=== PATIENT | female | born 1935 | race Caucasian/White ===

== ENCOUNTER 2016-11-10 02:59 | Inpatient (IN) | payer OTHER ==
[2016-11-10] MEDS ORDERED: ATIVAN IV PRN (09:08)
[2016-11-10] MEDS ORDERED: MISC. PHARMACY COMMUNICATION SCH (09:15)
[2016-11-10] MEDS ORDERED: ROXANOL CONC. LIQUID SL PRN (12:42)
[2016-11-10] MEDS ORDERED: ZOFRAN IV PRN (12:42)
[2016-11-10] MEDS ORDERED: TYLENOL GT PRN (12:42)
[2016-11-10] MEDS ORDERED: DUONEB (A & A) INH SCH (12:42)
[2016-11-10] MEDS ORDERED: VIMPAT GT SCH (12:42)
--- NOTE | 2016-11-10 13:55 | HISTORY AND PHYSICAL ---
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 Ms. Riggs has been fairly stable and is going to be admitted to the [facility] for inpatient respite care with [facility] and the [facility]. PAST MEDICAL HISTORY: I reviewed past medical history. Chronic respiratory failure, hypertension, history of brainstem stroke, recurrent hospitalizations for gram-negative pneumonia, seizure disorder. PAST SURGICAL HISTORY: Cataract surgery, hemorrhoidectomy, tonsillectomy, placement of a tracheostomy. ALLERGIES: Quinolones, statins, amoxicillin. FAMILY HISTORY: Noncontributory. SOCIAL HISTORY: The patient is a . She does not smoke or consume alcoholic beverages. REVIEW OF SYSTEMS: A 12 point review of systems was performed and pertinent positives and negatives were listed. PHYSICAL EXAM: GENERAL: This is a chronically ill-appearing 80-year-old lady in no apparent distress. VITAL SIGNS: She is afebrile. Vital signs are stable. HEENT: Fundi with arteriolar wall thickening. Pupils equal, round, reactive to light. Extraocular eye movements intact. NECK: Supple. No masses, JVD or bruits. CV: Regular rate and rhythm. LUNGS: Distant breath sounds with increased period of expiration. ABDOMEN: Soft, nontender, with active bowel sounds. A PEG tube is in place. EXTREMITIES: Trace edema. ASSESSMENT: 1. Chronic respiratory failure status post tracheostomy placement on a home ventilator secondary to brainstem cerebrovascular accident. 2. Seizure disorder. 3. Severe protein calorie malnutrition. 4. Ischemic heart disease status post [id number] elevation myocardial infarction. PLAN: 1. Chronic respiratory failure secondary to brainstem infarction. The patient will use their own Trilogy ventilator with the following ventilator settings. AC tidal volume 450, respiratory rate 14, PEEP 5. We will continue DuoNeb nebulizer treatments q.4 hours. 2. Seizure disorder. She remains seizure free. We will continue Vimpat 10 mg per mL 5 mL per tube b.i.d. and valproic acid 500 mg t.i.d. 3. The patient is going to be admitted to respite care for inpatient hospice. We will not draw any lab work or performing any tests or x-rays under any circumstances. We will continue to provide daily wound care for the sacral ulcer. We will continue her tube feedings as previously arranged. She is on Jevity 1.5 calories 25 mL per hour with 20 mL flush of water every 4 hours. She has continuous PEG tube feedings. We will turn the patient every 2 hours. We will perform routine tracheostomy care and routine Villaseñor care. We will treat symptoms such as nausea, vomiting agitation or pain on a p.r.n. basis. She does have a living will and is a no code blue level 1.
[2016-11-10] MEDS ORDERED: TYLENOL PR PRN (14:08)
[2016-11-10] MEDS ORDERED: HALDOL GT PRN (14:10)
[2016-11-10] MEDS ORDERED: ATIVAN GT PRN (14:12)
[2016-11-10] MEDS ORDERED: PHENERGAN GT PRN (14:15)
[2016-11-10] MEDS: LIORESAL GT SCH ×2 (16:28→22:12)
[2016-11-10] MEDS: LASIX GT SCH (16:30)
[2016-11-10] MEDS: COREG GT SCH ×2 (16:31→22:12)
[2016-11-10] MEDS: POTASSIUM CHLORIDE 20% LIQUID GT SCH (16:32)
[2016-11-10] MEDS: CATAPRES-TTS-2 TD SCH (16:34)
[2016-11-10] MEDS: DEPAKENE LIQUID GT SCH ×2 (16:35→16:58)
[2016-11-10] MEDS: PAXIL GT SCH (16:58)
[2016-11-10] MEDS: DUONEB (A & A) INH SCH (19:30)
[2016-11-10] MEDS ORDERED: SEPTRA LIQUID GT SCH (21:00)
[2016-11-10] MEDS: VIMPAT GT SCH (22:12)
[2016-11-11] MEDS: SYNTHROID GT SCH (06:19)
[2016-11-11] MEDS: DUONEB (A & A) INH SCH ×2 (08:02→19:50)
[2016-11-11] MEDS: VIMPAT GT SCH ×2 (08:51→22:25)
[2016-11-11] MEDS: PAXIL GT SCH (08:51)
[2016-11-11] MEDS: DEPAKENE LIQUID GT SCH ×3 (08:51→18:19)
[2016-11-11] MEDS: COREG GT SCH ×2 (08:52→22:25)
[2016-11-11] MEDS: VITAMIN C GT SCH (08:52)
[2016-11-11] MEDS: LIORESAL GT SCH ×2 (08:52→22:26)
[2016-11-11] MEDS: VITAMIN B-12 GT SCH (08:52)
[2016-11-11] MEDS: CATAPRES-TTS-2 TD SCH (08:53)
[2016-11-11] MEDS: LASIX GT SCH ×2 (08:54→22:25)
[2016-11-11] MEDS: OCUVITE LUTEIN & ZEAXANTHIN GT SCH (08:54)
[2016-11-11] MEDS: POTASSIUM CHLORIDE 20% LIQUID GT SCH (08:55)
[2016-11-11] MEDS ORDERED: ROXANOL CONC. LIQUID SL SCH (12:00)
[2016-11-12] MEDS: SYNTHROID GT SCH ×2 (05:52→06:25)
[2016-11-12] MEDS: DUONEB (A & A) INH SCH ×2 (08:00→19:31)
[2016-11-12] MEDS: ROXANOL CONC. LIQUID SL PRN (08:37)
[2016-11-12] MEDS: VITAMIN B-12 GT SCH (08:38)
[2016-11-12] MEDS: PAXIL GT SCH (08:39)
[2016-11-12] MEDS: COREG GT SCH ×2 (08:39→22:20)
[2016-11-12] MEDS: VIMPAT GT SCH ×2 (08:39→22:19)
[2016-11-12] MEDS: DEPAKENE LIQUID GT SCH ×3 (08:39→17:11)
[2016-11-12] MEDS: LIORESAL GT SCH ×2 (08:39→22:19)
[2016-11-12] MEDS: LASIX GT SCH ×2 (08:39→22:20)
[2016-11-12] MEDS: POTASSIUM CHLORIDE 20% LIQUID GT SCH (08:40)
[2016-11-12] MEDS: OCUVITE LUTEIN & ZEAXANTHIN GT SCH (08:45)
[2016-11-12] MEDS: VITAMIN C GT SCH (09:10)
[2016-11-12] MEDS: ATROPINE 1% OPHTH SOLN SL PRN ×2 (17:15→22:19)
[2016-11-13] MEDS: SYNTHROID GT SCH ×2 (05:32→06:02)
[2016-11-13] MEDS: DUONEB (A & A) INH SCH ×2 (08:11→19:32)
[2016-11-13] MEDS: DEPAKENE LIQUID GT SCH ×3 (09:10→16:45)
[2016-11-13] MEDS: POTASSIUM CHLORIDE 20% LIQUID GT SCH (09:10)
[2016-11-13] MEDS: LASIX GT SCH ×2 (09:11→22:32)
[2016-11-13] MEDS: LIORESAL GT SCH ×2 (09:11→22:32)
[2016-11-13] MEDS: PAXIL GT SCH (09:11)
[2016-11-13] MEDS: VITAMIN B-12 GT SCH (09:11)
[2016-11-13] MEDS: VIMPAT GT SCH ×2 (09:12→22:32)
[2016-11-13] MEDS: VITAMIN C GT SCH (09:12)
[2016-11-13] MEDS: OCUVITE LUTEIN & ZEAXANTHIN GT SCH (09:12)
[2016-11-13] MEDS: COREG GT SCH ×2 (09:12→22:32)
[2016-11-13] MEDS: ROXANOL CONC. LIQUID SL PRN ×3 (13:23→22:33)
[2016-11-13] MEDS: ATROPINE 1% OPHTH SOLN SL PRN (16:46)
[2016-11-14] MEDS: SYNTHROID GT SCH (06:18)
[2016-11-14] MEDS ORDERED: TYLENOL GT PRN (06:51)
[2016-11-14] MEDS: DUONEB (A & A) INH SCH ×2 (08:04→19:38)
[2016-11-14] MEDS: DEPAKENE LIQUID GT SCH ×3 (09:01→16:56)
[2016-11-14] MEDS: LIORESAL GT SCH ×2 (09:02→22:50)
[2016-11-14] MEDS: POTASSIUM CHLORIDE 20% LIQUID GT SCH (09:02)
[2016-11-14] MEDS: COREG GT SCH ×2 (09:02→22:51)
[2016-11-14] MEDS: VIMPAT GT SCH ×2 (09:03→22:50)
[2016-11-14] MEDS: PAXIL GT SCH (09:03)
[2016-11-14] MEDS: VITAMIN B-12 GT SCH (09:03)
[2016-11-14] MEDS: LASIX GT SCH ×2 (09:03→22:50)
[2016-11-14] MEDS: VITAMIN C GT SCH (09:03)
[2016-11-14] MEDS: OCUVITE LUTEIN & ZEAXANTHIN GT SCH (10:38)
[2016-11-14] MEDS: DUONEB (A & A) INH PRN ×2 (12:17→15:40)
[2016-11-15] MEDS: SYNTHROID GT SCH (06:04)
[2016-11-15] MEDS: DUONEB (A & A) INH SCH (08:00)
[2016-11-15] MEDS: LASIX GT SCH (09:09)
[2016-11-15] MEDS: PAXIL GT SCH (09:09)
[2016-11-15] MEDS: OCUVITE LUTEIN & ZEAXANTHIN GT SCH (09:10)
[2016-11-15] MEDS: VIMPAT GT SCH (09:10)
[2016-11-15] MEDS: VITAMIN B-12 GT SCH (09:10)
[2016-11-15] MEDS: LIORESAL GT SCH (09:10)
[2016-11-15] MEDS: DEPAKENE LIQUID GT SCH ×3 (09:10→17:05)
[2016-11-15] MEDS: VITAMIN C GT SCH (09:10)
[2016-11-15] MEDS: COREG GT SCH (09:10)
[2016-11-15] MEDS: POTASSIUM CHLORIDE 20% LIQUID GT SCH (09:11)
[2016-11-15 09:14] VITALS: BP 119/46
[2016-11-15] MEDS ORDERED: BLISTEX MEDICATED BERRY LIP BALM ONE (09:35)
== END 2016-11-15 18:15 | disposition hospice, home (50) | DRG 56 ==
LOC: P.MEDSURG 02:59 → MERGE 02:59
PROVIDERS: ADMIT Internal Medicine; ATTEND Internal Medicine
PROC: 5A1945Z Respiratory Ventilation, 24-96 Consecutive Hours (ICD-10-PCS; principal; 2016-11-10)
PROC: 3E0G76Z Introduction of Nutritional Substance into Upper GI, Via Natural or Artificial Opening (ICD-10-PCS; 2016-11-10)
DX: I69.398 Other sequelae of cerebral infarction (principal); E43 Unspecified severe protein-calorie malnutrition; Z99.11 Dependence on respirator [ventilator] status; J96.10 Chronic respiratory failure, unspecified whether with hypoxia or hypercapnia; Z93.0 Tracheostomy status; G40.909 Epilepsy, unspecified, not intractable, without status epilepticus; Z75.5 Holiday relief care; I10 Essential (primary) hypertension; G83.10 Monoplegia of lower limb affecting unspecified side; I25.9 Chronic ischemic heart disease, unspecified; Z66 Do not resuscitate; L98.429 Non-pressure chronic ulcer of back with unspecified severity; Z68.29 Body mass index [BMI] 29.0-29.9, adult; Z87.01 Personal history of pneumonia (recurrent); Z93.1 Gastrostomy status; I25.2 Old myocardial infarction; Z79.899 Other long term (current) drug therapy
CPT/HCPCS: 94640; 94762